=== PATIENT | female | born 1955 | race African-American/Black ===

== ENCOUNTER 2016-06-28 17:42 | Emergency (ER) | payer MEDICAID ==
[~2016-06-28] VITALS: Ht 160 cm; Wt 73.0 kg
[2016-06-28] MEDS ORDERED: CYCLOBENZAPRINE 10MG TABLET PO ONE (19:45)
[2016-06-28] MEDS ORDERED: KETOROLAC 60MG/2ML VIAL IM ONE (19:45)
[2016-06-28] MEDS ORDERED: DIAZEPAM 2 MG TABLET PO ONE (22:30)
[2016-06-29 00:03] VITALS: BP 108/64
== END 2016-06-29 00:39 | disposition home or self-care (01) ==
LOC: ER 19:00
DX: S70.01XA Contusion of right hip, initial encounter (principal); S40.011A Contusion of right shoulder, initial encounter; S10.93XA Contusion of unspecified part of neck, initial encounter; Z88.6 Allergy status to analgesic agent; Z88.5 Allergy status to narcotic agent; Z90.710 Acquired absence of both cervix and uterus; V03.90XA Pedestrian on foot injured in collision with car, pick-up truck or van, unspecified whether traffic or nontraffic accident, initial encounter; Y93.01 Activity, walking, marching and hiking; Y92.89 Other specified places as the place of occurrence of the external cause; Y99.8 Other external cause status
CPT/HCPCS: 73502; 74176; 96372; 99284; J1885; Z7610

== ENCOUNTER 2018-03-24 01:14 | Emergency (ER) | payer MEDICAID ==
[~2018-03-24] VITALS: Ht 160 cm; Wt 80.0 kg
[2018-03-24] MEDS ORDERED: SODIUM CHLORIDE 0.9% 1,000 ML IV ONE (02:15)
[2018-03-24] MEDS ORDERED: ONDANSETRON HCL 4MG/2ML INJ IV STA (02:15)
[2018-03-24 02:50] LABS: BASOPHILS % 0.9 % (0.0-2.0); EOSINOPHILS % 3.7 % (0.0-5.0); HEMATOCRIT. 43.2 % (36.0-48.0); HEMOGLOBIN. 14.5 g/dL (12.0-16.0); LYMPHOCYTES % 39.3 % (20.0-50.0); MEAN CORPUSCULAR HEMOGLOBIN 29.9 pg (28.0-32.0); MEAN CORPUSCULAR VOLUME 89.3 fL (81.0-99.0); MEAN PLATELET VOLUME 8.1 fl (7.4-10.4); MONOCYTES % 6.5 % (2.0-8.0); NEUTROPHILS % 49.6 % (40.0-76.0); PLATELET 314 x1000/uL (130-400); RED BLOOD CELL COUNT 4.84 mill/uL (4.2-5.4); RED CELL DISTRIBUTION WIDTH 14.3 % (11.6-14.6)
[2018-03-24 02:55] LABS: CHLORIDE 108 mEq/L (98-107)
[2018-03-24 06:20] VITALS: BP 124/74
== END 2018-03-24 06:28 | disposition home or self-care (01) ==
LOC: ER 01:14
DX: J02.9 Acute pharyngitis, unspecified (principal); R53.1 Weakness; H66.93 Otitis media, unspecified, bilateral; Z90.710 Acquired absence of both cervix and uterus; Z88.6 Allergy status to analgesic agent; Z88.8 Allergy status to other drugs, medicaments and biological substances
CPT/HCPCS: 36415; 71045; 80048; 85025; 93005; 96361; 96374; 99284; J2405; J7030